=== PATIENT | male | born 1950 | race Caucasian/White ===

== ENCOUNTER 2021-12-29 10:39 | Observation (INO) | payer OTHER ==
[~2021-12-29] VITALS: Ht 162.6 cm; Wt 65.8 kg
[2021-12-29 10:53] VITALS: BP 205/104
--- NOTE | 2021-12-29 11:00 | NUR ---
PT W/C ASSISTED TO ER BED 1
--- NOTE | 2021-12-29 11:34 | NUR ---
[facility]
--- NOTE | 2021-12-29 11:35 | NUR ---
Obtained TYRONE and blood samples, walked to lab.
[2021-12-29 11:54] LABS: BASOPHILS % (AUTO) 0.5 % (0.0-2.0); EOSINOPHILS # (AUTO) 0.1 K/uL (0-0.4); EOSINOPHILS % (AUTO) 1.8 % (0.0-4.0); HEMATOCRIT 38.8 % (36-52); HEMOGLOBIN 12.8 g/dL (12.0-18.0); LYMPHOCYTES # (AUTO) 1.2 K/uL (2.0-11.5); LYMPHOCYTES % (AUTO) 17.8 % (20.5-51.1); MEAN CORPUSCULAR HEMOGLOBIN 30 pg (27-31); MEAN CORPUSCULAR HGB CONC 33 g/dL (33-37); MEAN CORPUSCULAR VOLUME 89.6 fL (80-94); MONOCYTES # (AUTO) 0.5 K/uL (0.8-1.0); MONOCYTES % (AUTO) 7.8 % (1.7-9.3); NEUTROPHILS # (AUTO) 4.8 K/uL (1.8-7.7); NEUTROPHILS % (AUTO) 72.1 % (42.2-75.2); PLATELET COUNT (AUTO) 254 K/uL (140-450); RED BLOOD CELL COUNT(AUTO) 4.33 MIL/uL (4.20-6.10); RED CELL DISTRIBUTION WIDTH 14.2 % (11.6-13.7); WHITE BLOOD COUNT (AUTO) 6.7 K/uL (4.8-10.8)
[2021-12-29 12:10] LABS: PROTHROMBIN TIME 9.9 secs (10.8-13.4)
[2021-12-29 12:12] LABS: ALBUMIN 3.4 g/dL (3.4-5.0); ANION GAP 11.7 (8-16); ASPARTATE AMINOTRANSFERASE 22 U/L (15-37); CARBON DIOXIDE 25.8 mmol/L (21-32); CHLORIDE 105 mmol/L (98-107); CREATININE 1.6 mg/dL (0.6-1.3); GLUCOSE 144 mg/dL (74-106); POTASSIUM 5.5 mmol/L (3.5-5.1); SODIUM SERUM 137 mmol/L (136-145); TOTAL BILIRUBIN 0.7 mg/dL (0.0-1.0); UREA NITROGEN, BLOOD 16 mg/dL (7-18)
[2021-12-29] MEDS ORDERED: NACL 0.9% 1,000 ML IV ONE (12:35)
--- NOTE | 2021-12-29 13:06 | NUR ---
DR. AYON EVALUATING PATIENT AT BEDSIDE.
[2021-12-29] MEDS ORDERED: ONDANSETRON 4 MG/2 ML VIAL IVP PRN (13:10)
[2021-12-29] MEDS ORDERED: ACETAMINOPHEN 325 MG TAB PO PRN (13:10)
[2021-12-29] MEDS ORDERED: MORPHINE SULFATE 2 MG/ML SYR IVP PRN (13:10)
[2021-12-29] MEDS: NACL 0.9% 1,000 ML IV SCH ×3 (13:22→23:10)
--- NOTE | 2021-12-29 14:52 | NUR ---
LAB CALLED FOR CRITICAL LAB VALUE OF TROPONIN 169.
[2021-12-29] MEDS ORDERED: NIFEdipine 60 MG TABER PO ONE (15:22)
--- NOTE | 2021-12-29 15:27 | NUR ---
ULTRASOUND BEING DONE AT BEDSIDE.
[2021-12-29] MEDS: NIFEdipine 60 MG TABER PO SCH (16:15)
[2021-12-29] MEDS: ECOTRIN 81 MG TABEC PO SCH (16:15)
[2021-12-29] MEDS: hydrALAZINE 20 MG/ML VIAL IVP PRN (16:23)
--- NOTE | 2021-12-29 16:25 | NUR ---
hydralazine given IV push 10mg due to pt's BP being at 218/82. Pt has no c/o. Sat pt in high fowlers position.
--- NOTE | 2021-12-29 17:40 | NUR ---
Patient will be admitted to care of Dr. Schafer. Admited to Telemetry. Will go to room 123-A. Belongings list completed. Report to VERNA Lee.
--- NOTE | 2021-12-29 17:41 | NUR ---
The patient's care was reviewed and supervised by [facility], RN.
--- NOTE | 2021-12-29 17:45 | NUR ---
PATIENT WHEEL ON A GURNEY BY 2 ER NURSE. PATIENT AWAKE ABLE TO RESPONDS VERBALLY IN [place]. ABLE TO WALKED FROM GURNEY TO BED. RECEIVED BED SIDE REPORT FROM ALAN GILLESPIE FOR CONTINUITY OF CARE. PATIENT RESPIRATION EVEN AND NOT LABORED NO SHORTNESS OF BREATH. IV SITE ON RIGHT FOREARM BRANDON 22, IV RUNNING AT 100 CC/HOUR WITH NS. ORIENTED PATIENT TO ROOM, CALL LIGHT, BATHROOM, TV, VISITING AND MEAL TIME.
[2021-12-29 18:22] VITALS: BP 198/80
--- NOTE | 2021-12-29 19:10 | NUR ---
GAVE REPORT TO UNIT MANAGER CONVENIENCE STORES NURSE FOR CONTINUITY OF CARE.
--- NOTE | 2021-12-29 19:15 | NUR ---
RECEIVED BEDSIDE REPORT FROM DAY SHIFT RN FOR CONTINUITY OF CARE. PT IS AWAKE AAOX4 ON RA. PT IS NOT IN ANY ACUTE DISTRESS. DENIES ANY PAIN. HAS NO COMPLAINS AT THIS TIME. PT HAS RIGHT FOREARM 22 GAUGE WITH NS 100 CC/HR. PT STATES HE IS ABLE TO AMBULATE. URINAL IS BY BEDSIDE. EDUCATED PT TO CALL FOR HELP WHEN HE NEEDS TO AMBULATE TO THE RESTROOM. CALL LIGHT WITHIN REACH. ALL SAFETY MEASURES IN PLACE. WILL CONTINUE TO MONITOR THE PT.
[2021-12-29 20:00] VITALS: BP 157/53
[2021-12-29] MEDS: BLOOD GLUCOSE MONITORING 1 DEV DEV FS SCH (22:40)
[2021-12-29] MEDS: INSULIN LISPRO SLIDING SCALE 100 UNITS/ML VIAL SUBQ PRN (22:41)
--- NOTE | 2021-12-29 22:45 | NUR ---
PT BLOOD GLUCOSE WAS 214. GAVE 4 UNITS OF HUMALOG. PT DENIES ANY PAIN AND HAS NO COMPLAINS. WILL CONTINUE TO MONITOR THE PT.
[2021-12-30] VITALS: BP 174/65
[2021-12-30] MEDS: hydrALAZINE 20 MG/ML VIAL IVP PRN (00:35)
--- NOTE | 2021-12-30 02:17 | NUR ---
PT IS SLEEPING COMFORTABLE IN BED. PT IS NOT IN ANY ACUTE DISTRESS. IVF RUNNING PER MD ORDER. CALL LIGHT WITHIN REACH. ALL SAFETY MEASURES TAKEN. WILL CONTINUE TO MONITOR THE PT.
[2021-12-30 04:00] VITALS: BP 153/60
[2021-12-30] MEDS: BLOOD GLUCOSE MONITORING 1 DEV DEV FS SCH ×2 (06:33→11:21)
[2021-12-30 07:23] LABS: ALBUMIN 3.3 g/dL (3.4-5.0); ASPARTATE AMINOTRANSFERASE 25 U/L (15-37); CARBON DIOXIDE 21.3 mmol/L (21-32); CHLORIDE 109 mmol/L (98-107); CREATININE 1.4 mg/dL (0.6-1.3); GLUCOSE 130 mg/dL (74-106); MAGNESIUM 2.2 mg/dL (1.8-2.4); PHOSPHORUS 4.1 mg/dL (2.5-4.9); POTASSIUM 5.3 mmol/L (3.5-5.1); SODIUM SERUM 141 mmol/L (136-145); TOTAL BILIRUBIN 0.6 mg/dL (0.0-1.0); UREA NITROGEN, BLOOD 21 mg/dL (7-18)
[2021-12-30 07:29] LABS: BASOPHILS % (AUTO) 0.4 % (0.0-2.0); EOSINOPHILS % (AUTO) 0.4 % (0.0-4.0); HEMOGLOBIN 13.1 g/dL (12.0-18.0); LYMPHOCYTES # (AUTO) 1.4 K/uL (2.0-11.5); LYMPHOCYTES % (AUTO) 18.6 % (20.5-51.1); MEAN CORPUSCULAR HEMOGLOBIN 30 pg (27-31); MEAN CORPUSCULAR HGB CONC 34 g/dL (33-37); MEAN CORPUSCULAR VOLUME 90.2 fL (80-94); MONOCYTES # (AUTO) 0.4 K/uL (0.8-1.0); NEUTROPHILS # (AUTO) 5.5 K/uL (1.8-7.7); NEUTROPHILS % (AUTO) 74.6 % (42.2-75.2); PLATELET COUNT (AUTO) 246 K/uL (140-450); RED BLOOD CELL COUNT(AUTO) 4.33 MIL/uL (4.20-6.10); RED CELL DISTRIBUTION WIDTH 14.2 % (11.6-13.7); WHITE BLOOD COUNT (AUTO) 7.4 K/uL (4.8-10.8)
--- NOTE | 2021-12-30 07:29 | NUR ---
ENDORSED PT TO DAY SHIFT RN FOR CONTINUITY OF CARE PT IS STABLE.
--- NOTE | 2021-12-30 07:30 | NUR ---
RECEIVED FROM COMMUNITY CULTURAL DEVELOPMENT OFFICER NURSE FOR CONTINUITY OF CARE. PT IS AOX4, ABLE TO MAKE NEEDS KNOWN. RESPIRATIONS EVEN AND UNLABORED. ON ROOM AIR AND NO DISTRESS NOTED. SKIN IS WARM,DRY, AND INTACT. NOTED ABRASION ON CHEST AND LOWER EXTREMITIES. IV SITE ON RFA 22G INFUSING FLUIDS ORDERED. DENIES PAIN AT THE MOMENT. PLAN OF CARE DISCUSSED. SAFETY PRECAUTIONS IN PLACE. CALL LIGHT WITHIN REACH. WILL CONTINUE TO MONITOR.
[2021-12-30 08:00] VITALS: BP 139/62
[2021-12-30] MEDS: ECOTRIN 81 MG TABEC PO SCH (08:32)
[2021-12-30] MEDS: NIFEdipine 60 MG TABER PO SCH (08:32)
--- NOTE | 2021-12-30 08:45 | NUR ---
ALL SCHEDULED MEDS GIVEN. PT IS STABLE. NO DISTRESS NOTED. WILL CONTINUE TO MONITOR.
[2021-12-30 12:00] VITALS: BP 144/66
[2021-12-30] MEDS: INSULIN LISPRO SLIDING SCALE 100 UNITS/ML VIAL SUBQ PRN (12:29)
--- NOTE | 2021-12-30 12:29 | NUR ---
BLOOD SUGAR CHECK WAS 258. ADMINISTERED 6 UNITS OF INSULIN SQ PER MD ORDERED
[2021-12-30] MEDS ORDERED: METOPROLOL 25 MG TAB PO SCH (12:45)
[2021-12-30] MEDS ORDERED: ASPI-1205 PO (14:58)
[2021-12-30] MEDS ORDERED: METO25TA PO (14:58)
[2021-12-30] MEDS ORDERED: NIFE60TE5 PO (14:58)
[2021-12-30 15:55] VITALS: BP 141/66
[2021-12-30 16:00] VITALS: BP 141/66
--- NOTE | 2021-12-30 16:10 | NUR ---
ENDORSED DISCHARGE INSTRUCTIONS TO PATIENT. PT VERBALIZE UNDERSTANDING AND SIGNED DISCHARGE FORMS.
--- NOTE | 2021-12-30 16:15 | NUR ---
DISCHARGED PATIENT OFF THE UNIT. PT WAS STABLE PRIOR TO DISCHARGE
== END 2021-12-30 16:15 | disposition home or self-care (01) ==
LOC: MED 10:39 → MTU 13:12
PROVIDERS: ADMIT Hospitalist; ATTEND Hospitalist
DX: I16.0 Hypertensive urgency (principal); Z20.822 Contact with and (suspected) exposure to COVID-19; I16.1 Hypertensive emergency; R42 Dizziness and giddiness; I10 Essential (primary) hypertension; E78.5 Hyperlipidemia, unspecified; E11.9 Type 2 diabetes mellitus without complications; E78.00 Pure hypercholesterolemia, unspecified; R79.89 Other specified abnormal findings of blood chemistry; N17.9 Acute kidney failure, unspecified; E87.5 Hyperkalemia; I05.0 Rheumatic mitral stenosis; Z79.899 Other long term (current) drug therapy
CPT/HCPCS: 36415; 70450; 71045; 80053; 82948; 83735; 83880; 84100; 84484; 85025; 85610; 85730; 87081; 87426; 93005; 96361; 96372; 96374; 96376; 99285; C8929; G0378; J0360; J1815; J7030; Q0092